=== PATIENT | female | born 1985 | race Caucasian/White ===

== ENCOUNTER 2017-05-01 07:00 | Emergency (ER) | payer MEDICAID ==
[~2017-05-01] VITALS: Ht 170.2 cm; Wt 75.0 kg
[~2017-05-01 07:00] MED LIST: BACT800T5 PO
[2017-05-01 07:08] VITALS: BP 131/68; PULSE 68; RESP 15; TEMP 98.3; O2SAT 99
[2017-05-01] MEDS ORDERED: CLIN1CAP5 PO (07:52)
--- NOTE | 2017-05-01 07:52 | PD ---
HPI Chief Complaint: Oral / Dental Pain or Problem Time Seen by Provider: 07:45 Travel History International Travel<30 days: No Contact w/Intl Traveler<30days: No Traveled to known affect area: No History of Present Illness HPI So well 31-year-old woman with pain and swelling in her right jaw. She states that a bad tooth there. To try to get pulled out the dose to expensive. She had infection there before. It was improved with antibiotics. States she'll bit of pain yesterday and this morning she woke up with swelling around her jaw on that side. There is no erythema or redness. No fevers. No other complaints. History Past Medical History Medical History: Denies Significant Hx : 2 Para: 2 Social History Alcohol Use: No Tobacco Use: Yes (1 CIG A DAY) Allergies-Medications (Allergen,Severity, Reaction): Coded Allergies: cefixime (Verified Allergy, Severe, HIVES, 05/01/17) cephalexin (Verified Allergy, Severe, HIVES, 05/01/17) Reported Meds & Prescriptions Reported Meds & Active Scripts Active Clindamycin (Clindamycin HCl) 150 Mg Cap 300 Mg PO Q6H 10 Days Review of Systems Except as stated in HPI: all other systems reviewed are Neg Physical Exam Narrative Gen.: Well-appearing 31-year-old woman, no acute distress CV: Warm and well-perfused Respiratory: Normal rate and effort HEENT: There is obvious external swelling to the right lower jaw. There is no erythema redness or warmth. There is a little bit of tenderness. There is a decayed tooth with tenderness to percussion in the lower jaw on the first or second molar. There is no obvious fluctuance or purulent drainage. Data Data Last Documented VS Vital Signs Date Time Temp Pulse Resp B/P (MAP) Pulse Ox O2 Delivery O2 Flow Rate FiO2 05/01/17 08:07 05/01/17 07:08 98.3 68 15 99 Orders Orders Clindamycin (Cleocin) (05/01/17 08:00) Dexamethasone (Decadron) (05/01/17 08:00) MDM Medical Decision Making Medical Screen Exam Complete: Yes Emergency Medical Condition: Yes Differential Diagnosis Dental abscess, odontogenic infection, phlegmon, other Narrative Course Medical decision making A 31-year-old woman presents to the emergency department with dental infection and possible early abscess. She looks well. It showed up overnight. She needs to have the tooth pulled. She was given steroids and antibiotics here. We'll continue antibiotics and recommend outpatient follow-up with dentistry. Diagnosis Primary Impression: Dental infection Additional Instructions: Follow up with a dentist for tooth extraction. Take antibiotics as prescribed. Take ibuprofen or aleve as needed for pain. Return to the ER for any worsening pain, swelling, fevers, or any other new or worsening symptoms. Med/Other Pt SpecificInfo: Prescription(s) given Scripts Clindamycin (Clindamycin) 150 Mg Cap 300 MG PO Q6H for Infection for 10 Days, CAP 0 Refills Prov: Edgar Almaguer MD 05/01/17 Disposition: 01 DISCHARGE HOME Condition: Stable Edgar Almaguer MD May 01, 2017 07:52
[2017-05-01] MEDS ORDERED: DEXAMETHASONE 4 MG TAB PO ONE (08:00)
[2017-05-01] MEDS ORDERED: CLINDAMYCIN 150 MG CAP PO ONE (08:00)
== END 2017-05-01 08:09 | disposition home or self-care (01) ==
LOC: NEPK 07:00
DX: K04.7 Periapical abscess without sinus (principal); F17.210 Nicotine dependence, cigarettes, uncomplicated
CPT/HCPCS: 99283; J8540

== ENCOUNTER 2017-05-03 05:26 | Emergency (ER) | payer MEDICAID ==
[~2017-05-03] VITALS: Ht 170.2 cm; Wt 72.3 kg
[~2017-05-03 05:26] MED LIST changes: -BACT800T5 PO; +CLIN1CAP5 PO
[2017-05-03 05:29] VITALS: BP 133/71; PULSE 88; RESP 16; TEMP 98.3; O2SAT 100
[2017-05-03] MEDS ORDERED: AMOX875T2 PO (06:10)
[2017-05-03] MEDS ORDERED: TRAM50TA PO (06:10)
[2017-05-03] MEDS ORDERED: PERI0.126 SWISH-SPIT (06:10)
--- NOTE | 2017-05-03 06:10 | PD ---
HPI Chief Complaint: Oral / Dental Pain or Problem Time Seen by Provider: 05:46 Travel History International Travel<30 days: No Contact w/Intl Traveler<30days: No Traveled to known affect area: No History of Present Illness HPI Patient is a 31-year-old female presenting to emergency for evaluation of her gum swelling and tooth pain. Patient states she was in the emergency department 2 days ago with the same complaint. She reports compliance with prescribed clindamycin. She denies any fevers, dysphagia. She states that her pain is a an 8 out of 10 and states it's throbbing and aching. Pain is unrelieved by ibuprofen. PFSH Past Medical History Medical History: Denies Significant Hx Diminished Hearing: No Immunizations Current: Yes Tetanus Vaccination: > 5 Years Influenza Vaccination: No ?: Not LMP: 05/01/2017 : 2 Para: 2 Past Surgical History Ear Surgery: Yes (FOREIGN BODY EXTRACTION) Social History Alcohol Use: No Tobacco Use: Yes (1 CIG A DAY) Substance Use: No Allergies-Medications (Allergen,Severity, Reaction): Coded Allergies: cefixime (Verified Allergy, Severe, HIVES, 05/03/17) cephalexin (Verified Allergy, Severe, HIVES, 05/03/17) Reported Meds & Prescriptions Reported Meds & Active Scripts Active Clindamycin (Clindamycin HCl) 150 Mg Cap 300 Mg PO Q6H 10 Days Review of Systems Except as stated in HPI: all other systems reviewed are Neg General / Constitutional: No: Fever HENT: Positive: Dental Difficulties Gastrointestinal: No: Dysphagia Physical Exam Narrative GENERAL: Well-developed, well-nourished, alert female. Resting comfortably in no acute distress. SKIN: Warm and dry. HEAD: Normocephalic. MOUTH: Mucous membranes moist, right lower gumline adjacent to cuspid and first bicuspid there is edema, fluctuance and mild erythema noted. Multiple dental caries throughout. EYES: No scleral icterus. No injection or drainage. NECK: Supple, trachea midline. No JVD or lymphadenopathy. CARDIOVASCULAR: Regular rate and rhythm without murmurs, gallops, or rubs. RESPIRATORY: Breath sounds equal bilaterally. No accessory muscle use. GASTROINTESTINAL: Abdomen soft, non-tender, nondistended. MUSCULOSKELETAL: No cyanosis, or edema. BACK: Nontender without obvious deformity. No CVA tenderness. Data Data Last Documented VS Vital Signs Date Time Temp Pulse Resp B/P (MAP) Pulse Ox O2 Delivery O2 Flow Rate FiO2 05/03/17 05:29 98.3 88 16 133/71 (91) 100 Room Air MDM Medical Decision Making Medical Screen Exam Complete: Yes Emergency Medical Condition: Yes Medical Record Reviewed: Yes Interpretation(s) Vital Signs Date Time Temp Pulse Resp B/P (MAP) Pulse Ox O2 Delivery O2 Flow Rate FiO2 05/03/17 05:29 98.3 88 16 133/71 (91) 100 Room Air Differential Diagnosis Abscess versus dentalgia versus dental caries versus other Narrative Course Patient is a 31-year-old female presenting to emergency for evaluation of a dental abscess and right lower gumline. She has been compliant with clindamycin since it was prescribed on May 01. Please see procedure report for abscess I&D. Patient tolerated well, will change antibiotics to amoxicillin, patient has a reported allergy to Keflex however she states that she can take amoxicillin with no problem. She was advised that she will need to follow-up with a dentist for further evaluation and management. She was encouraged strongly to return to emergency department for any new or worsening symptoms. Patient verbalized understanding of instructions. Patient is stable for discharge. Procedures Procedure Narrative After the risks and benefits were discussed the following procedure was performed: INCISION AND DRAINAGE OF ABSCESS: The area was properly anesthetized with Hurricaine spray. An 18-gauge needle was used to puncture abscess, light pressure was applied, purulent drainage expressed, Yankauer suction was utilized during procedure to avoid patient swallowing copious secretions. Patient tolerated procedure well. Diagnosis Primary Impression: Dental abscess Referrals: Dentist 3 days Patient Instructions: Dental Abscess (ED), Dental Caries (ED), General Instructions Additional Instructions: Follow-up with your dentist Complete full course of antibiotics as prescribed Discontinue clindamycin Do not drive or operate machinery while taking narcotic pain medication Return to emergency department for any new or worsening symptoms Med/Other Pt SpecificInfo: Prescription(s) given Scripts Chlorhexidine Gluconate (Mouth) Liq (Peridex Liq) 0.12% Soln 15 ML SWISH-SPIT BID for 10 Days, #473 ML 0 Refills Prov: Frida Block 05/03/17 Tramadol (Tramadol) 50 Mg Tab 50 MG PO Q6H Y for PAIN, #7 TAB 0 Refills Prov: Frida Block 05/03/17 Amoxicillin-Clavulanate (Amoxicillin-Clavulanate) 875-125 mg Tab 875 MG PO BID for Infection, #20 TAB 0 Refills not for use in CrCl <30 mL/minute Prov: Frida Block 05/03/17 Disposition: 01 DISCHARGE HOME Condition: Stable Frida Block May 03, 2017 06:10
== END 2017-05-03 07:07 | disposition home or self-care (01) ==
LOC: NEPD 05:26
DX: K04.7 Periapical abscess without sinus (principal); F17.210 Nicotine dependence, cigarettes, uncomplicated
CPT/HCPCS: 40800

== ENCOUNTER 2017-10-11 23:24 | Emergency (ER) | payer MEDICAID ==
[~2017-10-11] VITALS: Ht 167.6 cm; Wt 77.0 kg
[~2017-10-11 23:24] MED LIST changes: +AMOX875T2 PO; +CLIN150C14 PO; -CLIN1CAP5 PO; +PERI0.126 SWISH-SPIT; +TRAM50TA PO
[2017-10-11 23:27] VITALS: BP 132/65; PULSE 79; RESP 16; TEMP 97.6; O2SAT 100
[2017-10-11] MEDS ORDERED: NORC5TAB PO (23:48)
[2017-10-11] MEDS ORDERED: CLIN150C14 PO (23:48)
--- NOTE | 2017-10-11 23:54 | PD ---
HPI Chief Complaint: Oral / Dental Pain or Problem Time Seen by Provider: 23:39 Travel History International Travel<30 days: No Contact w/Intl Traveler<30days: No Traveled to known affect area: No History of Present Illness HPI 32-year-old white female presents to emergency department with complains of a dental abscess. She states that she's been having swelling to her right lower mandible over the last 3 days. Symptoms are moderate. Pain is moderate. No alleviating factors. No exacerbating factors. No fever chills. PFSH Past Medical History Medical History: Denies Significant Hx Diminished Hearing: No Immunizations Current: Yes Tetanus Vaccination: < 5 Years Influenza Vaccination: No ?: Not LMP: 18 : 2 Para: 2 Past Surgical History Ear Surgery: Yes (FOREIGN BODY EXTRACTION) Social History Alcohol Use: No Tobacco Use: Yes (1 CIG A DAY) Substance Use: No Allergies-Medications (Allergen,Severity, Reaction): Coded Allergies: cefixime (Verified Allergy, Severe, HIVES, 10/11/17) cephalexin (Verified Allergy, Severe, HIVES, 10/11/17) Reported Meds & Prescriptions Reported Meds & Active Scripts Active [place] (Hydrocodone-Acetaminophen) 5 Mg-325 Mg Tab 1 Tab PO Q6H PRN Clindamycin (Clindamycin HCl) 150 Mg Cap 300 Mg PO Q6H 10 Days Peridex Liq (Chlorhexidine Gluconate (Mouth) Liq) 0.12% Soln 15 Ml SWISH-SPIT BID 10 Days Tramadol (Tramadol HCl) 50 Mg Tab 50 Mg PO Q6H PRN Amoxicillin-Clavulanate 875-125 mg Tab 875 Mg PO BID not for use in CrCl <30 mL/minute Review of Systems Except as stated in HPI: all other systems reviewed are Neg Physical Exam Narrative GENERAL: Well-developed, well-nourished in no acute distress. Nontoxic appearing. HEAD: Normocephalic, atraumatic. EYES: Pupils equal round and reactive. Extraocular motions intact. No scleral icterus. No injection or drainage. ENT: TMs clear without erythema. The external auditory canals clear. Nose: clear . Posterior pharynx is pink and moist. No tonsillar edema or exudate. Uvula midline. Airway patent. Patient has a large dental carry with decayed to the gumline on tooth #28. There is gingival erythema and edema. There is distention of the buccal mucosa. NECK: Trachea midline.Supple, nontender, moves head freely. No central bony tenderness or spasm. CARDIOVASCULAR: Regular rate and rhythm without murmurs, gallops, or rubs. RESPIRATORY: Clear to auscultation. Breath sounds equal bilaterally. No wheezes , rales, or rhonchi. GASTROINTESTINAL: Abdomen soft, non-tender, nondistended. No hepato-splenomegaly , or palpable masses. No guarding. EXTREMITIES: No clubbing, cyanosis, or edema. No joint tenderness, effusion, or edema noted. BACK: Nontender without deformity or crepitance. No flank tenderness. Data Data Last Documented VS Vital Signs Date Time Temp Pulse Resp B/P (MAP) Pulse Ox O2 Delivery O2 Flow Rate FiO2 10/11/17 23:45 18 10/11/17 23:27 97.6 79 132/65 (87) 100 Room Air Orders Orders Clindamycin (Cleocin) (10/12/17 00:00) Acetamin-Hydrocod 325-5 Mg ([place] 5-325 (10/12/17 00:00) Ed Discharge Order (10/11/17 23:49) MDM Medical Decision Making Medical Screen Exam Complete: Yes Emergency Medical Condition: Yes Medical Record Reviewed: Yes Differential Diagnosis MDM: Moderate Differential diagnoses: Dental abscess, dental caries, osteitis, cellulitis Narrative Course The patient has a dental abscess on tooth #28. An incision and drainage has been performed. Patient's given clindamycin 300 mg and work of 5 a grams by mouth. Procedures Procedure Narrative Incision and drainage dental abscess: The patient is given a dental block with 1 % lidocaine with epinephrine to tooth #28. After adequate anesthesia a stab incision is made with expression of pus. Patient tolerates procedure well. No complications. Diagnosis Primary Impression: Dental abscess Additional Impression: Dentalgia Patient Instructions: Narcotic given in the ED, General Instructions Additional Instructions: Rest. Saltwater gargles. Roma oil on cotton balls. 3 Advil every 6 hours. Clindamycin and [place]. follow-up with a dentist as soon as possible. And return to the ER if any problems. Med/Other Pt SpecificInfo: Prescription(s) given Scripts Hydrocodone-Acetaminophen ([place]) 5 Mg-325 Mg Tab 1 TAB PO Q6H Y for PAIN, #10 TAB 0 Refills Prov: Juan Henson MD 10/11/17 Clindamycin (Clindamycin) 150 Mg Cap 300 MG PO Q6H for Infection for 10 Days, CAP 0 Refills Prov: Juan Henson MD 10/11/17 Disposition: 01 DISCHARGE HOME Condition: Stable Kenny Henning Oct 11, 2017 23:54
[2017-10-12] MEDS ORDERED: ACETAMINOPHEN/HYDROcodone 325 MG/5 MG TAB PO ONE
[2017-10-12] MEDS ORDERED: CLINDAMYCIN 150 MG CAP PO ONE
== END 2017-10-12 00:09 | disposition home or self-care (01) ==
LOC: NEPD 23:24
DX: K04.7 Periapical abscess without sinus (principal); Z72.0 Tobacco use
CPT/HCPCS: 41800